=== PATIENT | male | born 1960 | race Caucasian/White ===

== ENCOUNTER → 2017-08-06 | Outpatient (CLI) | payer BC ==
[2017-08-06 16:45] LABS: BASO % 0.4 %; BASO ABS # 0.03 K/uL (0-0.2); COMPLETE YES; EOS % 2.9 %; HEMATOCRIT 44.7 % (42-52); IG% 0.4 %; LYMPH % 34.9 %; LYMPH ABS # 2.52 K/uL (1.2-3.4); MEAN CELL VOLUME 92.7 fL (80-100); MEAN CORPUSCULAR HGB CONC 34.5 g/dl (32-36); MEAN PLATELET VOLUME 9.7 fL (7.4-10.4); MONO % 9.6 %; NEUT % 51.8 %; PLATELET COUNT 205 K/uL (130-400); RED BLOOD COUNT 4.82 M/uL (4.7-6.1); WHITE BLOOD COUNT 7.22 K/uL (4.8-10.8)
[2017-08-06 17:40] LABS: BLOOD UREA NITROGEN 16 mg/dl (7-18); BUN/CREATININE RATIO 15.3 (10-20); CALCIUM 8.8 mg/dl (8.5-10.1); CARBON DIOXIDE 34 mmol/L (21-32); CHLORIDE 103 mmol/L (98-107); CREATININE 1.05 mg/dl (0.60-1.40); SODIUM 137 mmol/L (136-145)
[2017-08-06 17:48] LABS: GLUCOSE 83 mg/dl (70-99)
== END | disposition home or self-care (01) ==
LOC: C.LAB 15:55
PROVIDERS: ATTEND Surgery
DX: Z01.812 Encounter for preprocedural laboratory examination (principal); K40.90 Unilateral inguinal hernia, without obstruction or gangrene, not specified as recurrent

== ENCOUNTER → 2017-08-31 | Day surgery (SDC) | payer BC ==
[2017-08-22 11:28] VITALS: Ht 175.3 cm; Wt 81.8 kg
[~2017-08-31] VITALS: Ht 175.3 cm; Wt 81.8 kg
[~2017-08-31] MED LIST: ASPCH81X PO; ATROPINE SULFATE 0.1 MG/ML 5ML SYR IV PRN; BUPIVACAINE 0.5 % 5 MG/1 ML MPF 30ML VIAL ONE; BUPIVACAINE 0.5 % 5 MG/1 ML PF 10ML VIAL ONE; CEFAZOLIN 2000MG IV PUSH 10 ML IV SCH; CEFAZOLIN SOD 1 GM VIAL ONE; CEPH500C2 PO; CLR10 PO; COEN1CAP7 PO; DEXAMETHASONE SOD INJ 4 MG/ML VIAL ONE; EpHEDrine SULFATE INJ 50 MG/ML AMP IV PRN; FENTANYL CITRATE INJ 50 MCG/1 ML 2 ML VIAL IV PRN; FENTANYL CITRATE INJ 50 MCG/1 ML 2 ML VIAL ONE; HYDR-5688 PO; HYDROCODONE/ACETAMOPHEN 5/325MG TAB PO PRN; KETOROLAC TROMETHAMINE 30 MG/ML VIAL ONE; LACTATED RINGER'S 1000ML 1,000 ML IV SCH; LIDOCAINE 2% 20 MG/ML 5ML SYR IV ONE; LIDOCAINE HCL 1% 20 ML VIAL ONE; MIDAZOLAM HCL 1 MG/ML 2ML VIAL ONE; MULT-506 PO; OMEG10007 PO; ONDANSETRON INJ 2 MG/ML 2 ML VIAL IV PRN; ONDANSETRON INJ 2 MG/ML 2 ML VIAL ONE; PROMETHAZINE HCL INJ 6.25 MG in SODIUM CHLORIDE 0.9% 50ML 50 ML IV PRN; PROPOFOL IV EMULSION 10 MG/ML 20 ML VIAL IV ONE; SIMV20TA2 PO; SODIUM CHLORIDE 0.9% 1000ML 1,000 ML IV SCH; SODIUM CHLORIDE 0.9% INJ 10 ML VIAL ONE
--- NOTE | 2017-08-31 07:50 | Discharge Instructions-SurgCtr ---
Discharge Instructions Date of Service Aug 31, 2017. Visit Reason for Visit: Right Inguinal Hernia Discharge Discharge Diagnosis / Problem: Rt inguinal hernia Discharge Goals Goal(s): Decrease discomfort, Improve function, Improve disease control Medications Stopped Medications Name(s): HELD ASPIRIN , FISH OIL AND COQ10 FOR ONE WEEK Activity Recommendations Activity Limitations: as noted below Lifting Limitations: no more than 25 pounds Exercise/Sports Limitations: until after follow-up appointment May Resume Sexual Activity: when tolerated Shower/Bathe: keep incision dry (may shower over incision on Saturday 09/02) Driving or Machine Use: 5 days Anesthesia . Post Anesthesia Instructions: If you have had General Anesthesia or IV Sedation: * Do not drive today. * Resume driving when surgeon permits. * Do not make important decisions or sign legal documents today. * Call surgeon for: 1. Temperature elevations greater than 101 degrees F. 2. Uncontrollable pain. 3. Excessive bleeding. 4. Persistent nausea and vomiting. 5. Medication intolerance (nausea, vomiting or rash). * For nausea and vomiting use only clear liquids such as: tea, soda, bouillon until nausea subsides, then gradually increase diet as tolerated. * If you have any concerns or questions, call your surgeon's office. If physician is unavailable and it is an emergency, call 911 or go to the nearest emergency room. . Instructions / Follow-Up Instructions / Follow-Up SPECIAL CARE INSTRUCTIONS: * Cover incisions and change daily for comfort/drainage. * Leave steri strips in place * Avoid constipation- may use Senokot S and Milk of magnesia twice daily as directed on the package * May use ibuprofen for pain as tolerated. * Expect some swelling and bruising. Call your doctor if: * Temperature above 101 degrees * Pain not relieved by pain medicine ordered * There is increased drainage or redness from any incision * You have any unanswered questions or concerns [phone]. FOLLOW UP VISIT: If not already scheduled, please call the office for a follow-up visit. for next week- some suture removal OFFICE PHONE NUMBER: Dr. Franklin Office Diet Recommendations Home Diet: resume previous diet Pending Studies Studies pending at discharge: no Medical Emergencies . Who to Call and When: Medical Emergencies: If at any time you feel your situation is an emergency, please call 911 immediately. . Non-Emergent Contact Non-Emergency issues call your: Primary Care Provider, Surgeon . . "Provider Documentation" section prepared by Alejandro Franklin. .
--- NOTE | 2017-08-31 07:51 | History & Physical Bridge - [place] ---
H&P Re-Evaluation Bridge Note: I have examined the patient, reviewed the History & Physical and in the interval since the performance of the History & Physical I have noted the following changes of clinical significance: No changes noted
--- NOTE | 2017-08-31 09:25 | [facility] Operative Report ---
Operative Report Operative Date Aug 31, 2017. Pre-Operative Diagnosis Right Inguinal hernia Post-Operative Diagnosis Same as pre-op Procedure(s) Performed Right Inguinal Hernia Open Repair with Mesh Surgeon Aerospace Mechanic Surgeon(s) Wagner MARAVILLA Estimated Blood Loss 10ML Findings direct defect and small indirect w/ lipoma Specimens A.Right Inguinal area lipoma Anesthesia Gen Complication(s) None Disposition Recovery Room / PACU I attest to the content of the Intraoperative Record and any orders documented therein. Any exceptions are noted below.
--- NOTE | 2017-08-31 10:06 | OPERATIVE REPORT ---
DATE OF OPERATION: 08/31/2017 NAME OF OPERATION: Open right inguinal hernia repair. PREOPERATIVE DIAGNOSIS: Right inguinal hernia. POSTOPERATIVE DIAGNOSIS: Same with direct defect, small indirect defect and lipoma. STAFF SURGEON: Alejandro Franklin MD. INSTALLER INSPECTOR FINAL: Ahmet Torres PA-C. ANESTHESIA: General. DESCRIPTION OF PROCEDURE: The patient was brought in the operating room and placed on the operating table in the supine position. His lower abdomen was prepped and draped in usual fashion. 0.5% plain Marcaine was used to anesthetize the skin and subcutaneous tissue in the right inguinal area. Incision was made parallel to the inguinal ligament, carrying dissection down identifying the external oblique fibers incising them along their length to the external ring. Ilioinguinal and iliohypogastric nerves were identified. Cord structures were mobilized. The patient did have a moderate direct inguinal hernia and a small indirect inguinal hernia with lipoma. These were reduced. The direct defect was reinforced using a mesh plug, secured to surrounding tissue using 2-0 Ethibond suture, then a mesh patch placed into the floor of the canal around the cord structures and secured to surrounding tissue using 2-0 Ethibond suture. The site was irrigated with antibiotic solution. Then the external oblique fibers closed over the mesh around the cord structures using 2-0 Ethibond suture. Subcutaneous tissue was reapproximated using 2-0 plain catgut suture. This was after the deep tissue was anesthetized using 0.5% plain Marcaine. The skin was reapproximated using 4-0 nylon suture. Dressing applied and patient transferred to recovery room in stable condition. I attest to the content of the Intraoperative Record and any orders documented therein. Any exception s are noted below.
[2017-08-31 10:31] VITALS: TEMP 36.4
--- NOTE | 2017-08-31 10:47 | Anesthesiology Progress Note ---
Anesthesia Post Op Note Date & Time Aug 31, 2017 at 10:47 Vital Signs Pain Intensity: 1 Vital Signs Past 12 Hours Date Time Temp Pulse Resp B/P (MAP) Pulse Ox O2 Delivery O2 Flow Rate FiO2 08/31/17 10:31 36.4 64 16 121/74 (90) 97 Room Air 08/31/17 10:21 76 14 98 08/31/17 10:21 75 14 08/31/17 10:20 126/83 08/31/17 10:16 73 14 08/31/17 10:16 70 14 98 08/31/17 10:15 123/82 08/31/17 10:14 36.5 70 17 123/82 99 Room Air 08/31/17 10:11 70 15 100 08/31/17 10:11 70 15 08/31/17 10:10 131/80 08/31/17 10:06 79 18 99 08/31/17 10:06 79 18 08/31/17 10:05 123/79 08/31/17 10:01 79 16 100 08/31/17 10:01 80 16 08/31/17 10:00 138/89 08/31/17 09:56 78 22 08/31/17 09:56 77 22 99 08/31/17 09:55 130/89 08/31/17 09:51 76 13 08/31/17 09:51 78 13 98 08/31/17 09:50 124/87 08/31/17 09:46 89 16 08/31/17 09:46 88 16 106/78 100 08/31/17 09:41 73 7 08/31/17 09:41 72 7 98 08/31/17 09:40 131/89 08/31/17 09:37 36.4 72 20 144/96 100 Diffusion Mask 08/31/17 09:36 81 22 144/96 100 08/31/17 09:36 82 22 08/31/17 07:14 36.9 73 16 131/82 (98) 96 Room Air Notes Mental Status: alert / awake / arousable, participated in evaluation Pt Amnestic to Procedure: Yes Nausea / Vomiting: adequately controlled Pain: adequately controlled Airway Patency, RR, SpO2: stable & adequate BP & HR: stable & adequate Hydration State: stable & adequate Anesthetic Complications: no major complications apparent
[2017-08-31 10:58] VITALS: BP 127/85; PULSE 67; O2SAT 98
== END | disposition home or self-care (01) ==
LOC: X.SURG 07:01
PROVIDERS: ATTEND Surgery
DX: K40.90 Unilateral inguinal hernia, without obstruction or gangrene, not specified as recurrent (principal); D17.5 Benign lipomatous neoplasm of intra-abdominal organs; E78.00 Pure hypercholesterolemia, unspecified; Z79.82 Long term (current) use of aspirin; Z98.52 Vasectomy status; Z82.49 Family history of ischemic heart disease and other diseases of the circulatory system; Z80.8 Family history of malignant neoplasm of other organs or systems; Z80.51 Family history of malignant neoplasm of kidney; Z83.3 Family history of diabetes mellitus